=== PATIENT | female | born 1995 | race African-American/Black ===

== ENCOUNTER 2021-12-03 21:18 | Emergency (ER) | payer OTHER ==
[~2021-12-03] VITALS: Ht 162.6 cm; Wt 77.3 kg
[2021-12-03 22:44] VITALS: BP 112/77; PULSE 74; TEMP 98.2
== END 2021-12-03 23:18 | disposition home or self-care (01) ==
LOC: COL.ER 21:18
DX: R05.1 Acute cough (principal); R11.2 Nausea with vomiting, unspecified; Z28.310 Unvaccinated for COVID-19; Z20.822 Contact with and (suspected) exposure to COVID-19

== ENCOUNTER 2023-08-08 08:51 | Emergency (ER) | payer SELFPAY ==
[~2023-08-08] VITALS: Ht 160 cm; Wt 69.7 kg
[2023-08-08 08:58] VITALS: BP 137/91; TEMP 98.3
[2023-08-08 10:05] VITALS: PULSE 68
== END 2023-08-08 10:05 | disposition home or self-care (01) ==
LOC: COL.ER 08:51
DX: S93.401A Sprain of unspecified ligament of right ankle, initial encounter (principal); R42 Dizziness and giddiness; W10.9XXA Fall (on) (from) unspecified stairs and steps, initial encounter